=== PATIENT | female | born 1990 | race Caucasian/White ===

== ENCOUNTER 2018-10-21 23:20 | Emergency (ER) | payer MEDICARE ==
[~2018-10-21] VITALS: Ht 157.5 cm; Wt 71.4 kg
[2018-10-21 23:34] VITALS: BP 141/95; Ht 157.5 cm; Wt 71.4 kg
[2018-10-21] MEDS ORDERED: TYLENOL W/CODEI1 TAB (23:35)
[2018-10-22 00:29] LABS: APPEARANCE CLEAR (CLEAR); BILIRUBIN NEGATIVE (NEGATIVE); COLOR YELLOW (YELLOW); GLUCOSE NEGATIVE (NEGATIVE); HCG URINE NEGATIVE (NEGATIVE); KETONE NEGATIVE (NEGATIVE); NITRITE NEGATIVE (NEGATIVE); PROTEIN NEGATIVE (NEGATIVE); SPECIFIC GRAVITY 1.015 (1.005-1.020); UROBILINOGEN NORMAL (NORMAL)
[2018-10-22 00:46] LABS: BACTERIA FEW /hpf (NONE SEEN); EPITHELIAL CELLS OCC /hpf (0-5); MUCUS <1+ /lpf (NONE SEEN); RED CELLS - URINE OCC /hpf (0-5); WHITE CELLS - URINE OCC /hpf (0-5)
[2018-10-22 04:03] LABS: BASOPHILS 0.4 % (0-2); EOSINOPHILS 2.4 % (0-7); HEMOGLOBIN 13.6 g/dL (12-16); IMMATURE GRANULOCYTES 0.1 % (0-5); LYMPHOCYTES 50.1 % (15-50); MCH 30.6 pg (26.0-34.0); MCHC 34.9 g/dL (31.0-37.0); MCV 87.8 fL (80.0-100.0); MEAN PLATELET VOLUME 10.6 fL (7.4-10.4); MONOCYTES 6.7 % (2-11); NEUTROPHILS 40.3 % (40-80); PLATELET COUNT 325 10x3/uL (130-400); RBC 4.44 10x6/uL (4.00-5.40); RDW 12.8 % (11.5-14.5); WBC 6.7 10x3/uL (4.8-10.8)
[2018-10-22 04:14] LABS: ALKALINE PHOSPHATASE 59 U/L (46-116); ALT (SGPT) 25 U/L (10-68); AMYLASE - SERUM 54 U/L (25-115); BILIRUBIN - TOTAL 0.16 mg/dL (0.2-1.3); CALC OSMOLALITY 281 mosm/kg (275-300); CALCIUM 8.6 mg/dL (8.5-10.1); CARBON DIOXIDE 26.8 mmol/L (21.0-32.0); CHLORIDE - SERUM 104 mmol/L (98-107); CREATININE - SERUM 0.8 mg/dL (0.6-1.3); GLUCOSE 95 mg/dL (74-106); LIPASE 369 U/L (73-393); POTASSIUM - SERUM 3.6 mmol/L (3.5-5.1); PROTEIN - SERUM 7.6 g/dL (6.4-8.2); SODIUM 141 mmol/L (136-145); UREA NITROGEN 14 mg/dL (7-18); eGFR NON AFRICAN AMERICAN > 90 mL/min (90-120)
== END 2018-10-22 05:04 | disposition left against medical advice (07) ==
LOC: D.ER 23:20
PROVIDERS: Family Medicine
DX: R10.9 Unspecified abdominal pain (principal)

== ENCOUNTER 2019-03-22 16:13 | Emergency (ER) | payer MEDICARE ==
[~2019-03-22] VITALS: Ht 157.5 cm; Wt 68.2 kg
[~2019-03-22 16:13] MED LIST: TYLENOL W/CODEI1 TAB
[2019-03-22 16:35] VITALS: Ht 157.5 cm; Wt 68.2 kg
[2019-03-22] MEDS ORDERED: ZITHROMAX500 MG PO (17:08)
[2019-03-22 17:29] VITALS: BP 130/88
== END 2019-03-22 17:30 | disposition home or self-care (01) ==
LOC: D.ER 16:13
DX: J20.9 Acute bronchitis, unspecified (principal)

== ENCOUNTER 2019-11-15 22:06 | Emergency (ER) | payer MEDICAID ==
[~2019-11-15] VITALS: Ht 157.5 cm; Wt 52.3 kg
[~2019-11-15 22:06] MED LIST changes: +ZITHROMAX500 MG PO
[2019-11-15 22:13] VITALS: Ht 157.5 cm; Wt 52.3 kg
[2019-11-15 22:42] LABS: BILIRUBIN NEGATIVE (NEGATIVE); GLUCOSE NEGATIVE (NEGATIVE); KETONE NEGATIVE (NEGATIVE); NITRITE NEGATIVE (NEGATIVE); UROBILINOGEN NORMAL (NORMAL)
[2019-11-16 01:27] VITALS: BP 134/85
== END 2019-11-16 01:27 | disposition home or self-care (01) ==
LOC: D.ER 22:06
PROVIDERS: Surgery
DX: O99.320 Drug use complicating pregnancy, unspecified trimester (principal); F15.90 Other stimulant use, unspecified, uncomplicated; Z3A.00 Weeks of gestation of pregnancy not specified; R10.9 Unspecified abdominal pain

== ENCOUNTER 2020-01-01 04:17 | Emergency (ER) | payer MEDICAID ==
[~2020-01-01] VITALS: Ht 157.5 cm; Wt 54.5 kg
[2020-01-01 04:27] VITALS: BP 126/86; Ht 157.5 cm; Wt 54.5 kg
== END 2020-01-01 05:16 | disposition home or self-care (01) ==
LOC: D.ER 04:17
DX: O26.892 Other specified pregnancy related conditions, second trimester (principal); Z3A.14 14 weeks gestation of pregnancy; R10.9 Unspecified abdominal pain; Z53.20 Procedure and treatment not carried out because of patient's decision for unspecified reasons

== ENCOUNTER 2020-04-15 08:05 | Emergency (ER) | payer MEDICAID ==
[~2020-04-15] VITALS: Ht 157.5 cm; Wt 77.3 kg
[2020-04-15 08:11] VITALS: BP 130/74; Ht 157.5 cm; Wt 77.3 kg
== END 2020-04-15 08:30 | disposition home or self-care (01) ==
LOC: D.ER 08:05
DX: O26.893 Other specified pregnancy related conditions, third trimester (principal); Z3A.00 Weeks of gestation of pregnancy not specified; G56.00 Carpal tunnel syndrome, unspecified upper limb